=== PATIENT | female | born 1955 | race African-American/Black ===

== ENCOUNTER → 2016-08-04 | Outpatient (CLI) | payer OTHER ==
[~2016-08-04] MED LIST: HYDROCODON-ACE1 EAC7 PO; LISINOPRIL-HCTZ1 T19 PO; LISINOPRIL20 MG PO; MELOXICAM15 MG PO; TRAMADOL HCL50 M2
--- NOTE | ~2016-08-04 | MY11 ---
[facility] A Service of [facility] RADIOLOGY TEXT RESULTS PATIENT: ISABELA LOWERY LOCATION: [facility] : 59 UNIT #: [id number] AGE: [address]: NISHA SNYDER MD SEX: F ORDER DR: [id number] [facility]. [place], [place] [address] [id number] O MR#: [id number] Acc #: [id number] NAME: ISABELA LOWERY : 1955 SEX: F STUDY DATE/TIME: 08/04/2016 9:02 UNIT: [facility] ROOM: STUDY DESCRIPTION: MY Mammogram Screening Dig Agus Attending Physician: Nisha Snyder M.D. Referring Physician: Nisha Snyder M.D. Ordering Physician: Nisha Snyder M.D. Primary Care Physician: Nisha Snyder M.D. MEDICAL IMAGING REPORT This report is preliminary unless electronic signature is present EXAM Digital screening mammograms 08/04/2016 HISTORY 60-year-old woman no risk elevation right side port placement. Annual screen. COMPARISON Outside mammograms from [facility] date 06/25/2014. FINDINGS Digital imaging of each breast was completed utilizing screening protocol. Review includes FDA-approved CAD device. Breast parenchyma is predominantly fatty replaced. Previously noted pathologic axillary lymph nodes bilaterally are no longer visible. MediPort images on the right MLO projection. There is no breast mass and no suspicious calcifications or architectural deformity. IMPRESSION Negative mammogram. Interval resolution of a bilateral axillary adenopathy. Annual screening recommended. Patients over the age of 40 are entered into a reminder system with target due date for the next mammogram. A result letter will also be sent to the patient. BIRADS: 1, negative. Dictated by... Corky Martinez M.D. THIS IS AN ELECTRONICALLY VERIFIED REPORT [facility] A Service of [facility] & [facility] RADIOLOGY TEXT RESULTS PATIENT: ISABELA LOWERY LOCATION: [facility] : 59 UNIT #: [id number] AGE: [address]: NISHA SNYDER MD SEX: F ORDER DR: Corky Martinez M.D. at 08/05/2016 8:04 AM RUSTY/americo TD: 08/04/2016 17:14 JOB #: [id number] MEDICAL IMAGING REPORT Page 1 of 1 COPY
== END | disposition home or self-care (01) ==
LOC: CWCC 08:42
DX: Z12.31 Encounter for screening mammogram for malignant neoplasm of breast (principal); Z95.9 Presence of cardiac and vascular implant and graft, unspecified
CPT/HCPCS: G0202

== ENCOUNTER → 2016-08-10 | Outpatient (CLI) | payer OTHER ==
--- NOTE | ~2016-08-10 | CT55 ---
[facility] A Service of [facility] RADIOLOGY TEXT RESULTS PATIENT: SEBASTIÁNSEPTEMBER Aleksey LOCATION: [facility] : 59 UNIT #: [id number] AGE: [address]: Tk Weinberg MD SEX: F ORDER DR: [id number] [facility]. [place], [place] [address] [id number] O MR#: [id number] Acc #: [id number] NAME: SEBASTIÁN SEPTEMBER : 1955 SEX: F STUDY DATE/TIME: 08/10/2016 9:20 UNIT: [facility] ROOM: STUDY DESCRIPTION: CT Chest W Con Attending Physician: Tk Weinberg M.D., Ph.D. Referring Physician: Tk Weinberg M.D., Ph.D. Ordering Physician: Tk Weinberg M.D., Ph.D. Primary Care Physician: Gucci Del Valle M.D. MEDICAL IMAGING REPORT This report is preliminary unless electronic signature is present EXAM CT chest INDICATIONS Lymphoma. Restaging. Observation for metastatic disease. Follicular lymphoma grade II, intraabdominal lymph nodes. TECHNIQUE CT of the chest utilizing 100 mL Isovue-370 IV contrast. Coronal and sagittal reconstructions were obtained. This CT exam was performed with one or more of the following radiation dose reduction techniques: Automatic exposure control, adjustment of mA and/or kV according to patient size, and iterative reconstruction. COMPARISON Concurrent CT abdomen and pelvis dated 08/10/2016, CT chest dated 02/15/2016. FINDINGS There is no evidence of disease progression in the chest. No pathologically enlarged lymph nodes are identified. A superior mediastinal lymph node anterior to the trachea measures 0.6 cm in short axis, unchanged. No enlarged hilar or axillary lymph nodes. There is no pericardial or pleural effusion. Thoracic aorta is normal in caliber. No new pulmonary opacities. Lungs are clear. There are a few calcified granulomas. Central airways are patent. No acute osseous abnormalities. IMPRESSION 1. No evidence of disease progression in the chest. No pathologically enlarged lymph nodes. [facility] A Service of [facility] RADIOLOGY TEXT RESULTS PATIENT: ISABELA LOWERY LOCATION: [facility] : 59 UNIT #: [id number] AGE: [address]: Tk Weinberg MD SEX: F ORDER DR: Dictated by... Flaco Nguyen M.D. THIS IS AN ELECTRONICALLY VERIFIED REPORT lFaco Nguyen M.D. at 08/11/2016 9:02 AM RPC/kraig TD: 08/10/2016 21:45 JOB #: [id number] MEDICAL IMAGING REPORT Page 1 of 1 COPY
--- NOTE | ~2016-08-10 | CT2 ---
[facility] A Service of [facility] RADIOLOGY TEXT RESULTS PATIENT: SEBASTIÁNSeptember LOCATION: [facility] : 59 UNIT #: [id number] AGE: [address]: Tk Weinberg MD SEX: F ORDER DR: [id number] [facility]. [place], [place] [address] [id number] O MR#: [id number] Acc #: [id number] NAME: SEBASTIÁN SEPTEMBER : 1955 SEX: F STUDY DATE/TIME: 08/10/2016 9:20 UNIT: [facility] ROOM: STUDY DESCRIPTION: CT Abd and Pelv W Cont Attending Physician: Tk Weinberg M.D., Ph.D. Referring Physician: Tk Weinberg M.D., Ph.D. Ordering Physician: Tk Weinberg M.D., Ph.D. Primary Care Physician: Gucci Del Valle M.D. MEDICAL IMAGING REPORT This report is preliminary unless electronic signature is present EXAM CT abdomen and pelvis with contrast INDICATIONS Restaging follicular lymphoma grade 2, intraabdominal lymph nodes. Observation for response to therapy, disease progression. PROCEDURE Contrast-enhanced CT of the abdomen and pelvis 100 mL of Isovue-370 COMPARISON 03/02/[address] exam was performed with one or more of the following radiation dose reduction techniques: automatic exposure control, adjustment of mA and/or kV according to patient size, and iterative reconstruction. FINDINGS Abdomen with contrast: Refer to the separately dictated chest CT for thoracic findings. Liver enlarged measuring 20.9 cm. The spleen is upper limits of normal at 12.7 cm. There is diffuse hepatic steatosis. A few nodular areas around the gallbladder fossa are stable and favored to represent areas of focal fatty sparing. The kidneys, adrenal glands and pancreas unremarkable. There is a small gas containing stone in the gallbladder. No evidence for gallbladder inflammation. Bowel loops are nondilated. Appendix is normal. Small retroperitoneal nodes are unchanged. No new or enlarging abdominal adenopathy. [facility] A Service of [facility] RADIOLOGY TEXT RESULTS PATIENT: SEBASTIÁNSeptember LOCATION: [facility] : 59 UNIT #: [id number] AGE: [address]: Tk Weinberg MD SEX: F ORDER DR: Pelvis with contrast: Calcified and noncalcified fibroids in the uterus. No pelvic mass or fluid. No pelvic adenopathy. No aggressive appearing bone lesion. IMPRESSION 1. No evidence for disease progression. There are a few small retroperitoneal nodes that are stable. 2. Hepatomegaly with significant steatosis. 3. Spleen is upper limits of normal in size. 4. Fibroids in the uterus Dictated by... Allan Monterroso M.D. THIS IS AN ELECTRONICALLY VERIFIED REPORT Allan Monterroso M.D. at 08/11/2016 7:19 AM Nelia TD: 08/10/2016 13:43 JOB #: [id number] MEDICAL IMAGING REPORT Page 1 of 1 COPY
[2016-08-10 09:40] LABS: POC - GFR >60.0 mL/min (>60)
== END | disposition home or self-care (01) ==
LOC: CCAT 08:42
PROVIDERS: Internal Medicine Hematology & Oncology
DX: Z43.9 Encounter for attention to unspecified artificial opening (principal); C82.13 Follicular lymphoma grade II, intra-abdominal lymph nodes; D25.9 Leiomyoma of uterus, unspecified; R16.0 Hepatomegaly, not elsewhere classified; K76.0 Fatty (change of) liver, not elsewhere classified
CPT/HCPCS: 71260; 74177; 82565; Q9967

== ENCOUNTER → 2017-01-06 | Outpatient (CLI) | payer OTHER ==
--- NOTE | ~2017-01-06 | US5 ---
[facility] A Service of [facility] & [facility] RADIOLOGY TEXT RESULTS PATIENT: SEBASTIÁNSEPTEMBER Aleksey LOCATION: [place] : 59 UNIT #: [id number] AGE: [address]: NISHA SNYDER MD SEX: F ORDER DR: [id number] [facility] [address] [place], [place] [address] [id number] O MR#: [id number] Acc #: [id number] NAME: SEBASTIÁN ISABELA : 1955 SEX: F STUDY DATE/TIME: 01/06/2017 7:37 UNIT: [facility] ROOM: STUDY DESCRIPTION: US Abdominal Complete Attending Physician: Nisha Snyder M.D. Referring Physician: Nisha Snyder M.D. Ordering Physician: Nisha Snyder M.D. Primary Care Physician: Nisha Snyder M.D. MEDICAL IMAGING REPORT This report is preliminary unless electronic signature is present EXAM Complete abdominal ultrasound. COMPARISON CT abdomen and pelvis with IV contrast dated August 11, 2015 and abdominal ultrasound dated August 18, 2016. INDICATION 61-year-old female with abnormal LFTs. FINDINGS Visualized portions of the pancreas are unremarkable. The abdominal aorta is normal in caliber and patent. IVC is patent at the level of the liver. The liver is echogenic relative to the right kidney most consistent with steatosis. Portal architecture is not well seen. There is normal renal size and cortical thickness. No evidence of hydronephrosis. No shadowing renal calculi. There is hepatomegaly with an hepatic length of 19.6 cm. Hepatic contour is smooth and the portal architecture is not well seen, other findings supportive of steatosis. Main portal vein is patent with normal flow direction. There are layering shadowing calculi within the gallbladder lumen. Gallbladder wall thickness is normal. No evidence of acute cholecystitis. Common bile duct caliber measures up to 5 mm. Urinary bladder is not seen. There is normal size of the spleen. Better appreciated on CT, there is a hypoattenuating lesion in the inferior pole right kidney which appears to be identified on ultrasound. This measures up to 1.2 cm on ultrasound and appears hypoechoic relative to the renal cortex suggesting a cyst, although incompletely evaluated on this study. More remote CTs cannot be retrieved from archival status at this time due to IT issues, therefore evaluation for stability prior to August 10, 2016 cannot be performed. IMPRESSION 1. Cholelithiasis without evidence of acute cholecystitis. Normal [facility]. [facility] A Service of [facility] & [facility] RADIOLOGY TEXT RESULTS PATIENT: SEBASTIÁNSeptember LOCATION: [facility] : 59 UNIT #: [id number] AGE: [address]: NISHA SNYDER MD SEX: F ORDER DR: caliber of the common bile duct for patient age. 2. Hepatic steatosis and hepatomegaly without evidence of cirrhosis. 3. Hypoechoic lesion in the inferior pole of the right kidney corresponding to the indeterminate density lesion in the inferior pole right kidney on CT of August 10, 2016. Stability cannot be determined prior to this time as prior CTs cannot be retrieved from archival status at this time due to technical issues. Consider comparison with more remote CTs to document stability of this finding. If definitive characterization is desired, consider CT abdomen with and without IV contrast to exclude an enhancing lesion in the right kidney. 4. No evidence of hydronephrosis on the current exam. Urinary bladder is not seen. Otherwise, normal abdominal ultrasound. Dictated by... Marcin Gonzalez M.D. THIS IS AN ELECTRONICALLY VERIFIED REPORT Marcin Gonzalez M.D. at 01/11/2017 4:45 PM CONCHITA/phong TD: 01/07/2017 04:47 JOB #: [id number] MEDICAL IMAGING REPORT Page 1 of 1 COPY
== END | disposition home or self-care (01) ==
LOC: CGUS 07:05
DX: R79.89 Other specified abnormal findings of blood chemistry (principal); K80.20 Calculus of gallbladder without cholecystitis without obstruction; K76.0 Fatty (change of) liver, not elsewhere classified; N28.9 Disorder of kidney and ureter, unspecified
CPT/HCPCS: 76700